=== PATIENT | female | born 1985 | race Caucasian/White ===

== ENCOUNTER 2021-01-11 12:39 | Emergency (ER) | payer MEDICARE ==
[~2021-01-11 12:39] MED LIST: ATIVAN1 MG PO; BACTRIM DS TAB1 EACH PO; BUTALB-ACETAMI1 EAC1 PO; GABAPENTIN400 MG PO; NORCO 5-325 TA1 EACH PO; SEROQUEL200 MG PO; ULTRAM50 MG PO; ZANAFLEX4 MG PO
== END 2021-01-11 13:42 | disposition left against medical advice (07) ==
LOC: ER1 12:39
DX: Z53.21 Procedure and treatment not carried out due to patient leaving prior to being seen by health care provider (principal)